=== PATIENT | male | born 1960 | race Caucasian/White ===

== ENCOUNTER 2019-01-18 11:42 | Emergency (ER) | payer BC, OTHER ==
[~2019-01-18] VITALS: Ht 170.2 cm; Wt 117.9 kg
[~2019-01-18 11:42] MED LIST: ASPI325 PO; BACL10 PO; CEPH500; CEPH500 PO; DOC250 PO; DOXA2; DOXA4 PO; DOXY100; DOXY100 PO; FISH1000 PO; GABA300 PO; HYDACE10B PO; HYDACE5 PO; HYDCHL25 PO; HYDR1TAB94 PO; IBUP800 PO; KETO10 PO; LISI20 PO; MELA3 PO; MELO7.5 PO; METO50 PO; MULVITMINF PO; OMEP20ER PO; Percocet 5-3251 EACH PO; Prednisone20 MG PO; TAMS.4ER PO; TIZANIDINE HCL4 MG PO; Zofran Odt4 MG SL
[2019-01-18] MEDS ORDERED: METF500C PO (12:08)
[2019-01-18] MEDS ORDERED: CEPH500 PO (12:09)
[2019-01-18] MEDS ORDERED: ASPI81CH PO (12:10)
[2019-01-18] MEDS ORDERED: ATOR40TA PO (12:10)
[2019-01-18] MEDS ORDERED: CLON.1 PO (12:11)
[2019-01-18] MEDS ORDERED: CYCL10 PO (12:12)
[2019-01-18] MEDS ORDERED: OXYC10TA19 PO (12:14)
[2019-01-18 13:48] LABS: Bun/Creatinine Ratio 19.6 (12.0-20.0); Calcium, Blood 9.2 mg/dL (8.5-10.1); Creatinine, Blood 1.38 mg/dL (0.60-1.20); Potassium, Blood 5.1 mmol/L (3.5-5.5)
[2019-01-18] MEDS ORDERED: Percocet 5-3251 EACH PO (14:03)
== END 2019-01-18 14:19 | disposition home or self-care (01) ==
LOC: ER 11:42
PROVIDERS: Emergency Medicine
DX: M51.16 Intervertebral disc disorders with radiculopathy, lumbar region (principal); R73.9 Hyperglycemia, unspecified; R73.03 Prediabetes; Z79.899 Other long term (current) drug therapy; Z79.84 Long term (current) use of oral hypoglycemic drugs; Z79.82 Long term (current) use of aspirin; Z79.891 Long term (current) use of opiate analgesic; I10 Essential (primary) hypertension; G43.909 Migraine, unspecified, not intractable, without status migrainosus
CPT/HCPCS: 36415; 80048; 96372; 99283-25; J1170

== ENCOUNTER → 2020-03-17 | Outpatient (CLI) | payer BC, OTHER ==
[~2020-03-17] MED LIST changes: +ALLEGRA ALLERG180 MG PO; +ASPI81CH PO; +ATOR40TA PO; +Adipex-P37.5 M1 PO; +BUPROPION XL150 M1 PO; +CALC.25 PO; +CLON.1 PO; +CYCL10 PO; +DOCU100 PO; +MAGNESIUM OXID500 MG PO; +METF500C PO; +Methocarbamol500 MG PO; +OXYACE7.5T PO; +OXYC10TA19 PO; +POTASSIUM CITRA PO; +TAMSULOSIN HCL0.4 M1 PO; +VITAMIN D325 MC3 PO; +ZYRTEC10 M2 PO
[2020-03-17 11:18] LABS: BASOPHILS ABSOLUTE AUTO 0.06 K/mm3 (0.00-0.23); BASOPHILS PERCENT AUTO 1 % (0-2); EOSINOPHILS ABSOLUTE AUTO 0.19 K/mm3 (0.00-0.68); EOSINOPHILS PERCENT AUTO 2 % (0-6); Hematocrit 46.3 % (37.0-53.0); Hemoglobin 15.8 g/dL (13.5-17.5); IMMATURE GRAN ABSOLUTE AUTO 0.04 K/mm3 (0.00-0.10); IMMATURE GRAN PERCENT AUTO 1 % (0-1); LYMPHOCYTES PERCENT AUTO 23 % (21-46); MONOCYTES ABSOLUTE AUTO 0.76 K/mm3 (0.16-1.47); MONOCYTES PERCENT AUTO 10 % (4-13); Mean Corpuscular HGB 31.2 pg (26.0-34.0); Mean Corpuscular HGB Conc 34.1 g/dL (31.5-36.5); Mean Corpuscular Volume 92 fL (80-100); Mean Platelet Volume 8.9 fL (9.1-12.4); NEUTROPHILS PERCENT AUTO 64 % (41-73); Platelet Count 304 K/mm3 (150-400); RDW Coefficient Variation 14.1 % (11.7-14.2); Red Blood Cell Count 5.06 M/mm3 (4.30-5.90); White Blood Cell Count 7.95 K/mm3 (4.00-11.30)
[2020-03-17 11:33] LABS: Albumin, Blood 3.9 g/dL (3.4-5.0); Albumin/Globulin Ratio 0.8 (0.8-1.8); Bilirubin, Total 0.3 mg/dL (0.1-1.0); Bun/Creatinine Ratio 15.2 (12.0-20.0); Calcium, Blood 8.8 mg/dL (8.5-10.1); Creatinine, Blood 1.32 mg/dL (0.60-1.20); Globulin, Blood 4.9 g/dL (2.2-4.0); Potassium, Blood 4.3 mmol/L (3.5-5.5); Total Protein, Blood 8.8 g/dL (6.4-8.2)
== END | disposition home or self-care (01) ==
LOC: LAB SHORT 11:14 → LAB EV 11:14
PROVIDERS: Physician Assistant
DX: Z09 Encounter for follow-up examination after completed treatment for conditions other than malignant neoplasm (principal); Z87.19 Personal history of other diseases of the digestive system
CPT/HCPCS: 80053; 85025

== ENCOUNTER 2020-09-24 08:07 | Day surgery (SDC) | payer BC, OTHER ==
[~2020-09-24] VITALS: Ht 170.2 cm; Wt 109.2 kg
[~2020-09-24 08:07] MED LIST changes: +Aspir 8181 MG PO
== END 2020-09-24 10:33 | disposition home or self-care (01) ==
LOC: ORSCSDS 08:07
PROVIDERS: Internal Medicine Gastroenterology
PROC: 0DBK8ZX Excision of Ascending Colon, Via Natural or Artificial Opening Endoscopic, Diagnostic (ICD-10-PCS; principal; 2020-09-24 09:15)
PROC: 0DBM8ZX Excision of Descending Colon, Via Natural or Artificial Opening Endoscopic, Diagnostic (ICD-10-PCS; principal; 2020-09-24 09:15)
DX: Z12.11 Encounter for screening for malignant neoplasm of colon (principal); Z86.010 Personal history of colon polyps; D12.2 Benign neoplasm of ascending colon; D12.4 Benign neoplasm of descending colon; K57.30 Diverticulosis of large intestine without perforation or abscess without bleeding; K64.8 Other hemorrhoids; K21.9 Gastro-esophageal reflux disease without esophagitis; I10 Essential (primary) hypertension; F41.8 Other specified anxiety disorders; Z79.899 Other long term (current) drug therapy; Z79.82 Long term (current) use of aspirin
CPT/HCPCS: 82947; 88305; J2704; J7120

== ENCOUNTER → 2021-07-07 | Outpatient (CLI) | payer BC, OTHER | END | disposition home or self-care (01) | LOC: LAB SHORT 12:34 | DX: L91.8 Other hypertrophic disorders of the skin (principal) | CPT/HCPCS: 88304 ==

== ENCOUNTER 2021-07-30 07:26 | Observation (INO) | payer BC, OTHER ==
[~2021-07-30] VITALS: Ht 167.6 cm; Wt 120.2 kg
[2021-07-30] MEDS ORDERED: CEPH500 PO (07:53)
[2021-07-30] MEDS ORDERED: HYDCHL25 PO (07:53)
[2021-07-30] MEDS ORDERED: METF500C PO (07:53)
[2021-07-30] MEDS ORDERED: TAMS.4ER PO (07:53)
[2021-07-30] MEDS ORDERED: Budeprion Xl300 MG PO (07:54)
[2021-07-30] MEDS ORDERED: ATOR20 PO (07:54)
[2021-07-30] MEDS ORDERED: GABA800 PO (07:54)
[2021-07-30] MEDS ORDERED: Robaxin750 MG PO (07:55)
[2021-07-30] MEDS ORDERED: POTCIT10 PO (07:55)
[2021-07-30] MEDS ORDERED: MAGNESIUM OXID500 MG PO (07:56)
[2021-07-30] MEDS ORDERED: OMEP20ER PO (07:56)
[2021-07-30] MEDS ORDERED: VITAMIN D5000 UNIT PO (07:56)
[2021-07-30] MEDS ORDERED: Aspir 8181 MG PO (07:56)
[2021-07-30] MEDS ORDERED: OXYC5 PO (07:57)
[2021-07-30] MEDS ORDERED: DOC250 PO (07:57)
[2021-07-30] MEDS ORDERED: MELATONIN5 M1 PO (07:58)
[2021-07-30 08:22] LABS: BASOPHILS ABSOLUTE AUTO 0.07 K/mm3 (0.00-0.23); BASOPHILS PERCENT AUTO 1 % (0-2); EOSINOPHILS ABSOLUTE AUTO 0.16 K/mm3 (0.00-0.68); EOSINOPHILS PERCENT AUTO 2 % (0-6); IMMATURE GRAN ABSOLUTE AUTO 0.04 K/mm3 (0.00-0.10); IMMATURE GRAN PERCENT AUTO 0 % (0-1); LYMPHOCYTES ABSOLUTE AUTO 2.61 K/mm3 (0.84-5.20); LYMPHOCYTES PERCENT AUTO 28 % (21-46); MONOCYTES ABSOLUTE AUTO 0.92 K/mm3 (0.16-1.47); MONOCYTES PERCENT AUTO 10 % (4-13); Mean Corpuscular HGB 31.3 pg (26.0-34.0); Mean Corpuscular Volume 92 fL (80-100); Mean Platelet Volume 9.1 fL (9.1-12.4); NEUTROPHILS ABSOLUTE AUTO 5.47 K/mm3 (1.96-9.15); NEUTROPHILS PERCENT AUTO 59 % (41-73); Platelet Count 272 K/mm3 (150-400); RDW Coefficient Variation 13.1 % (11.7-14.2); RDW Standard Deviation 43.6 fL (35.1-46.3); Red Blood Cell Count 5.12 M/mm3 (4.30-5.90); White Blood Cell Count 9.27 K/mm3 (4.00-11.30)
[2021-07-30 08:56] LABS: Albumin, Blood 3.7 g/dL (3.4-5.0); Albumin/Globulin Ratio 0.9 (0.8-1.8); Bilirubin, Total 0.4 mg/dL (0.1-1.0); Bun/Creatinine Ratio 14.3 (12.0-20.0); Calcium, Blood 9.4 mg/dL (8.5-10.1); Creatinine, Blood 1.26 mg/dL (0.60-1.20); Globulin, Blood 4.3 g/dL (2.2-4.0); Potassium, Blood 4.5 mmol/L (3.5-5.5)
[2021-07-30 11:09] LABS: Influenza A, PCR NEGATIVE (NEGATIVE); Influenza B, PCR NEGATIVE (NEGATIVE); Resp Syncytial Virus, PCR NEGATIVE (NEGATIVE); SARS-Cov-2 (COVID-19) PCR, MMC NEGATIVE (NEGATIVE)
--- NOTE | 2021-07-30 14:05 | NUR ---
07/30/21 1405 Venecia Ratliff 3 GRAMS AT 1346
--- NOTE | 2021-07-30 15:05 | NUR ---
PT DENIES NAUSEA, TOLERATING PO INTAKE, MEDICATED FOR PAIN. PT ASSISTED TO DRESS. ABLE TO DRESS MOSTLY INDEPENDENT. ASSISTED WITH SHOES. PT HAS ABD BINDER IN PLACE, NO BLEEDING NOTED TO BINDER. IV D/C'D, CATH INTACT, DRESSING APPLIED. D/C INSTRUCTIONS GIVEN, PT DENIES QUESTIONS. D/C INSTRUCTIONS GIVEN TO WELL. PT OUT TO CAR VIA W/C, ABLE TO AMB W/ STANDBY ASSIST.
== END 2021-07-30 13:00 | disposition home or self-care (01) ==
LOC: ER 07:26 → ERHOLD 07:27 → ER 10:05 → ERHOLD 13:00
PROVIDERS: Family Medicine; ADMIT Surgery
PROC: 0WUF0JZ Supplement Abdominal Wall with Synthetic Substitute, Open Approach (ICD-10-PCS; principal; 2021-07-30 12:00)
DX: K42.0 Umbilical hernia with obstruction, without gangrene (principal); I10 Essential (primary) hypertension; R73.03 Prediabetes; G47.33 Obstructive sleep apnea (adult) (pediatric); G89.29 Other chronic pain; M54.9 Dorsalgia, unspecified; Z87.891 Personal history of nicotine dependence; Z20.822 Contact with and (suspected) exposure to COVID-19
CPT/HCPCS: 0241U; 36415; 74177; 80053; 83605; 85025; A9270; J0330; J0690; J1100; J1885; J2405; J2704; J3010; Q9967

== ENCOUNTER → 2021-08-26 | Outpatient (CLI) | payer BC, OTHER ==
[~2021-08-26] MED LIST changes: +ATOR20 PO; +Budeprion Xl300 MG PO; +GABA800 PO; +MELATONIN5 M1 PO; +OXYC5 PO; +POTCIT10 PO; +Robaxin750 MG PO; +VITAMIN D5000 UNIT PO
[2021-08-26 17:28] LABS: Microalbumin, Random Urine 16.8 mg/L (0.000-20.000)
== END ==
LOC: LAB SHORT 08:30
PROVIDERS: Family Medicine
DX: I10 Essential (primary) hypertension (principal)
CPT/HCPCS: 82043; 82570

== ENCOUNTER → 2025-02-16 | Outpatient (CLI) | payer MEDICARE, OTHER ==
[~2025-02-16] MED LIST changes: +BUPR150ER PO; -Budeprion Xl300 MG PO; -GABA800 PO; +THERA-D2000 UNIT PO; -VITAMIN D5000 UNIT PO
== END | disposition home or self-care (01) ==
LOC: LAB 16:22 → LAB SHORT 16:22
DX: N39.0 Urinary tract infection, site not specified (principal)
CPT/HCPCS: 87086

== ENCOUNTER 2025-06-30 14:30 | Emergency (ER) | payer MEDICARE, OTHER ==
[~2025-06-30] VITALS: Ht 170.2 cm; Wt 99.8 kg
[2025-06-30 15:01] VITALS: BP 140/84
[2025-06-30] MEDS ORDERED: Milk 150ML/Molasses 150ML (300ML Total) PR ONE (15:45)
== END 2025-06-30 21:26 | disposition home or self-care (01) ==
LOC: ER 14:30
DX: K59.00 Constipation, unspecified (principal); Z98.890 Other specified postprocedural states; Z79.891 Long term (current) use of opiate analgesic; Z79.84 Long term (current) use of oral hypoglycemic drugs; Z79.82 Long term (current) use of aspirin; Z79.899 Other long term (current) drug therapy; Z59.89 Other problems related to housing and economic circumstances
CPT/HCPCS: 74018; 99283-25